=== PATIENT | female | born 1945 | race Caucasian/White ===

== ENCOUNTER → 2018-01-27 12:08 | Outpatient (CLI) | payer MEDICARE, SELFPAY ==
[2018-01-27 14:28] LABS: Thyroid Stimulating Hormone 1.31 uIU/mL (0.47-4.68)
== END ==
PROVIDERS: PCP Family Medicine; Visit Provider Internal Medicine
DX: L29.9 Pruritus, unspecified (principal)
CPT/HCPCS: 84443

== ENCOUNTER → 2018-06-07 10:39 | Outpatient (CLI) | payer MEDICARE, SELFPAY ==
--- NOTE | 2018-06-07 | DI.MG.S_ITS ---
BILATERAL DIGITAL SCREENING MAMMOGRAM 3D/2D WITH CAD: 06/07/2018 CLINICAL: Routine screening. Comparison is made to exams dated: 03/23/2017 mammogram, 11/14/2015 mammogram, and 11/23/2013 mammogram - [facility]. There are scattered fibroglandular elements in both breasts. Current study was also evaluated with a Computer Aided Detection (CAD) system. No significant masses, calcifications, or other findings are seen in either breast. There has been no significant interval change. IMPRESSION: NEGATIVE There is no mammographic evidence of malignancy. A 1 year screening mammogram is recommended. This exam was interpreted at Station ID: [id number]. NOTE: For mammograms, a report in lay terms will be sent to the patient. Approximately 15% of breast malignancies will not be visualized mammographically. In the management of a palpable breast mass, a negative mammogram must not discourage biopsy of a clinically suspicious lesion. Electronically Signed By: Maryuri burroughs/melissa:06/07/2018 11:51:34 letter sent: Normal Exam ACR BI-RADS Category 1: Negative 3341F
== END ==
PROVIDERS: PCP Family Medicine; Visit Provider Family Medicine
DX: Z12.31 Encounter for screening mammogram for malignant neoplasm of breast (principal)
CPT/HCPCS: 77063; 77067

== ENCOUNTER → 2018-11-11 15:44 | Outpatient (CLI) | payer MEDICARE, SELFPAY ==
[2018-11-11 19:03] LABS: Alanine Aminotransferase 29 IU/L (9-52); Albumin Globulin Ratio 1.4 (1.0-2.8); Alkaline Phosphatase 72 U/L (38-126); Aspartate Aminotransferase 34 IU/L (14-36); Bilirubin Total 0.5 mg/dL (0.2-1.3); Blood Urea Nitrogen 12 mg/dL (7-17); C-Reactive Protein Quant 2.3 mg/dL (<1.0); Calcium 10.1 mg/dL (8.4-10.2); Carbon Dioxide 29 mmol/L (22-32); Chloride 101 mmol/L (98-107); Cholesterol 222 mg/dL (140-199); Estimated Glomerular Filt Rate > 60.0 mL/min (>60); Globulin 3.5 g/dL (1.7-4.1); Glucose 95 mg/dL (80-110); HEMOLYSIS < 15 (0-50); Potassium 5.1 mmol/L (3.4-5.1); Sodium 139 mmol/L (137-145); Total Protein 8.5 g/dL (6.3-8.2); Triglycerides 128 mg/dL (35-150)
[2018-11-11 19:09] LABS: HDL Cholesterol 124 mg/dL (40-60); LDL Cholesterol Calculated 72 mg/dL (<100)
== END ==
PROVIDERS: PCP Family Medicine; Visit Provider Physician Assistant Medical
DX: Z00.00 Encounter for general adult medical examination without abnormal findings (principal); R79.82 Elevated C-reactive protein (CRP)
CPT/HCPCS: 36415; 80053; 80061; 86140

== ENCOUNTER → 2018-12-06 13:45 | Outpatient (CLI) | payer MEDICARE, SELFPAY ==
--- NOTE | 2018-12-06 13:47 | DI.US.S_ITS ---
PROCEDURE: US CAROTID DOPPLER BI INDICATIONS: HYPERLIPIDEMIA TECHNIQUE: Color and pulse Doppler interrogation was performed of both carotid systems, with image documentation and velocity measurements. COMPARISON: None. FINDINGS: Stenosis calculations are based on SRU (Society of Radiologists in Ultrasound) criteria. Right side: Brachial blood pressure: 127/69 mm Hg. Common carotid artery peak systolic velocity: 132 cm/sec. Internal carotid artery peak systolic velocity: 83 cm/sec. Internal carotid artery end diastolic velocity: 28 cm/sec. External carotid artery peak systolic velocity: 74 cm/sec. ICA/CCA peak systolic ratio: 0.6 . Guerra scale imaging description: Mild distal common carotid artery calcification Percent internal carotid artery stenosis: Less than 50%. Vertebral artery: Flow direction is antegrade. Left side: Brachial blood pressure: 113/67 mm Hg. Common carotid artery peak systolic velocity: 153 cm/sec. Internal carotid artery peak systolic velocity: 105 cm/sec. Internal carotid artery end diastolic velocity: 28 cm/sec. External carotid artery peak systolic velocity: 87 cm/sec. ICA/CCA peak systolic ratio: 0.7. Guerra scale imaging description: Calcified plaques at the bifurcation Percent internal carotid artery stenosis: Less than 50%. Vertebral artery: Flow direction is antegrade. IMPRESSION: 1. Less than 50% internal carotid artery stenosis bilaterally. Dictated by: Jayson Reece M.D. on 12/06/2018 at 14:30 Approved by: Jayson Reece M.D. on 12/06/2018 at 14:32
== END ==
PROVIDERS: PCP Family Medicine; Visit Provider Family Medicine
DX: Z13.820 Encounter for screening for osteoporosis (principal); M85.851 Other specified disorders of bone density and structure, right thigh; Z78.0 Asymptomatic menopausal state; I65.23 Occlusion and stenosis of bilateral carotid arteries; M54.2 Cervicalgia; E78.5 Hyperlipidemia, unspecified; M06.9 Rheumatoid arthritis, unspecified; Z87.891 Personal history of nicotine dependence
CPT/HCPCS: 77080; 93880

== ENCOUNTER 2018-12-19 08:10 | Day surgery (SDC) | payer MEDICARE, SELFPAY ==
[2018-12-19] VITALS (9 sets, daily range): BP systolic 94–143; BP diastolic 50–69; PULSE 67–78; RESP 13–16; TEMP 36.2–36.9; O2SAT 97–100; BMI 19.0
--- NOTE | 2018-12-19 | PATH_ITS ---
[facility] Accession Number: [id number] . 01 Material submitted: . PART A: ILEOCECAL VALVE - ILEOCECAL VALVE BIOPSY PART B: colon - TRANSVERSE POLYP PART C: rectum - RECTAL POLYP . 02 Diagnosis: A. Ileocecal Valve, Biopsy: Colonic mucosa with no diagnostic abnormality. Negative for active or microscopic colitis. Negative for granulomata, dysplasia or malignancy. Additional step-sections examined. . B. Transverse Colon, Polyp: Tubular adenoma. Additional step-sections examined. . C. Rectum, Polyp: Hyperplastic polyp. . I/12/21/2018 . 02 Electronically signed: . Gary Oconnor MD, PhD, Pathologist NPI- [id number] . 01 Gross description: . Part A: ILEOCECAL VALVE BIOPSY: Received in formalin is 1 fragment(s) of sosa, soft tissue measuring 0.2 x 0.1 x 0.1 cm which is entirely submitted and submitted entirely in 1 cassette(s) Part B: TRANSVERSE POLYP: Received in formalin are 2 fragment(s) of sosa, soft tissue measuring 0.1 x 0.1 x 0.1 cm to 0.2 x 0.2 x 0.2 cm which is entirely submitted and submitted entirely in 1 cassette(s) Part C: RECTAL POLYP: Received in formalin is 1 fragment(s) of sosa, soft tissue measuring 0.2 x 0.1 x 0.1 cm which is entirely submitted and submitted entirely in 1 cassette(s) /DMC /[facility] . 02 Pathologist provided ICD-10: K63.5, D12.3 . 02 CPT . 516540, 603163, 753167 Performed at: [address] [id number] MD Terell Viveros MD Phone: [phone] Performed at: 02 [facility] [id number] [place] [id number] MD Tia Brown MD Phone: [phone]
[2018-12-19] MEDS: SODIUM CHLORIDE 0.9% 1,000 ML 200 ML IV (08:55)
--- NOTE | 2018-12-19 10:47 | PM.HP.1 ---
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 No symptoms in patient. Since last scope her sister of CRC so pt is anxious. Patient History Medical History Rheumatoid arthritis (Chronic ~2007) Tubulovillous adenoma of colon (Resolved ~11/2015) Hayfever (Chronic 1994) Osteoarthritis (Chronic 2007) Osteoporosis (Chronic 2013) Polymyalgia rheumatica (Chronic 2007) Rheumatoid arthritis (Chronic 2007) Tinnitus (Chronic 1988) Chicken pox (Resolved ~1950) Colon polyps (Resolved) Fractures (Resolved 2011) Measles (Resolved ~1949) Mumps (Resolved ~1949) Rheumatic fever (Resolved ~1949) Surgical History History of bilateral tubal ligation (Acute ~1979) Anesthesia (Resolved) History of cosmetic surgery (Resolved 2011) History of oral surgery (Resolved 1992) History of oral surgery (Resolved 1999) Status post cholecystectomy (Resolved 1965) Family History (Updated 03/13/18 @ 14:17 by Rosemarie Leong DO) Child Age: 55 Diabetes mellitus Father Stroke Congestive heart failure Sister Asperger's disorder Bipolar disorder Colon cancer Drug abuse Grandfather Heart attack Grandmother No problems noted. Mother Alcoholism Grandfather No problems noted. Grandmother Gallbladder problem Social History household members: spouse Smoking Status: Former smoker (quit 1988) Family & Social History Family History Child Age: 55 Diabetes mellitus Father Stroke Congestive heart failure Sister Asperger's disorder Bipolar disorder Colon cancer Drug abuse Grandfather Heart attack Grandmother No problems noted. Mother Alcoholism Grandfather No problems noted. Grandmother Gallbladder problem Social History: household members spouse Tobacco & Substance use: Smoking Status Former smoker Meds Home Medications Medication Instructions Recorded Confirmed Type [VITAMIN B12] #0 05/27/11 07/22/18 History CA PANTOTHENATE/FOLIC ACID/VIT 1 tab PO QDAY #0 12/07/12 12/19/18 History (MULTIVITAMIN) Flaxseed Oil (#FLAXSEED OIL) 1,000 mg PO Q DAY #0 12/07/12 12/19/18 History zolpidem 5 mg tablet 5 mg PO HSP PRN #30 tab 11/15/17 07/22/18 Rx cholecalciferol (vitamin D3) 1,000 1,000 unit PO DAILY 03/07/18 12/19/18 History unit capsule hydrocodone 7.5 mg-acetaminophen 1 tab PO QID PRN #120 tab 09/23/18 12/19/18 Rx 325 mg tablet fluticasone propionate 50 1 spray INTRANASAL BID #16 gram 12/06/18 12/19/18 Rx mcg/actuation nasal spray,suspension lorazepam [Ativan] 1 mg PO QDAY PRN 12/19/18 12/19/18 History prednisone 3 mg PO DAILY 12/19/18 12/19/18 History Allergies Allergy/AdvReac Type Severity Reaction Status Date / Time sulfite Allergy Severe COUGH Verified 07/22/18 11:06 garlic Allergy Unknown cough Verified 07/22/18 11:06 tree nut Allergy Unknown ALLERGIC Verified 07/22/18 11:06 TO HAZELNUT AND PECAN codeine Allergy Verified 12/19/18 08:57 PARMESAN Allergy Severe COUGH Uncoded 07/22/18 11:06 Review of Systems Constitutional Constitutional: Reports as per HPI Exam Vital Signs (past 8 hours): - 12/19/18 08:42 Temperature 98.0 F Pulse Rate 72 Respiratory Rate 16 Blood Pressure 143/69 H Pulse Oximetry 99 Oxygen Delivery Method Room Air Narrative Exam Narrative: AAO, NAD, female of healthy weight EOMI, MMM, no scleral icterus unlabored RA soft, nt/nd MAEW visible skin dry and intact Assessment & Plan Assessment & Plan narrative: - surveillance colonoscopy in high risk patient --> all R/B/A discussed and pt wishes to proceed
[2018-12-19] MEDS: LACTATED RINGERS 1,000 ML 42 ML IV (11:37)
--- NOTE | 2018-12-19 11:39 | PM.OP.ENDO ---
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 Since then, her sister of CRC. No symptoms in patient. Surgeon: Lizzy Gibbs Procedure Notes SCOAP/Timeout: 1053 Procedure in detail: After obtaining informed consent, the patient was brought to the GI suite and placed in the left lateral decubitus position on the examination table. After placement of appropriate monitors, the patient was given incremental doses of Versed and Fentanyl until an appropriate level of sedation was achieved. A time out was held per SCOAP protocol. A digital rectal examination was performed and did not reveal any masses or obstructing lesions. The colonoscope was gently passed into the patient's anus and the entire colon navigated to the level of the cecum with difficulty due to a tortuous colon and poor patient tolerance. Abdominal pressure and increasing doses of sedation were used. Prep was adequate but with moderate volume green liquid requiring frequent suctioning. Once in the cecum, the scope was slowly withdrawn being sure to go before and beyond all mucosal folds and prominences as able to get a thorough examination. At the ileocecal valve, a protruding smooth area is noted, approximately 1cm, not distinct polyp but possibly redundant mucosa- biopsy sent. Two small 1mm polyps are noted and removed for biopsy in the transvere colon and the rectum. At the level of the rectal vault, the scope retroflexion was attempted but patient was writhing extensively so the maneuver was aborted. The scope was straightened and air aspirated from the colon. The instrument was removed from the patient's body and the procedure was concluded. The patient was allowed to awaken from sedation without difficulty and taken to the post-anesthesia care unit in good condition. Scope withdrawal time: 11 min Sedation minutes: 44 Findings: polyp (1. transverse colon polyp- 1mm 2. rectal polyp- 1mm) and other findings (ileocecal valve with smooth polyp versus redundant mucosa- biopsied ) Specimen(s): other (1. ileocecal valve biopsy 2. transverse colon polyp 3. rectal polyp) Complications: other (pt intolerant, required high doses of medication and still uncomfortable) Impression: 1. Ileocecal valve polyp versus redundant mucosa- poorly visualized; biopsied 2. Transverse colon polyp- 1mm, biopsied 3. Rectal polyp- 1mm, biopsied 4. Poor tolerance- recommend propfol sedation in future Recommendations: Colonscopy in 3 years Follow up: weeks Disposition: PACU
[2018-12-19] MEDS: MIDAZOLAM 5 MG/5 ML VIAL IV (11:41)
[2018-12-19] MEDS: fentaNYL 250 MCG/5 ML INJ IV (11:43)
--- NOTE | 2018-12-19 12:04 | SUR.PHASEI ---
Aroused to voice, denies pain/nausea. HOB elevated, juice given. VSS
--- NOTE | 2018-12-19 13:16 | SUR.PHASEII ---
pt reported new bruise on left lower forearm. pt reports she believes it is from the blood pressure cuff. after looking at bruise on left lower forearm approximately to be 1 inch by 2inch. pt reports always bruises easily. Dr. Gibbs at bedside to access bruise and no new order received.
== END 2018-12-19 13:20 | disposition home or self-care (01) ==
PROVIDERS: PCP Family Medicine; Visit Provider Surgery
PROC: 0DJD8ZZ Inspection of Lower Intestinal Tract, Via Natural or Artificial Opening Endoscopic (ICD-10-PCS; CPT 45378; principal; 2018-12-19 09:45)
DX: Z86.010 Personal history of colon polyps (principal); D12.3 Benign neoplasm of transverse colon; K62.1 Rectal polyp; Z80.0 Family history of malignant neoplasm of digestive organs
CPT/HCPCS: 45380; 88305; 99152; 99153; J2250; J3010

== ENCOUNTER → 2019-01-11 17:24 | Outpatient (CLI) | payer MEDICARE, SELFPAY ==
[2019-01-11 18:20] LABS: C-Reactive Protein Quant 2.8 mg/dL (<1.0)
== END ==
PROVIDERS: Family Provider Family Medicine; PCP Family Medicine; Visit Provider Physician Assistant Medical
DX: M35.3 Polymyalgia rheumatica (principal)
CPT/HCPCS: 36415; 86140

== ENCOUNTER → 2019-03-20 11:33 | Outpatient (CLI) | payer MEDICARE, SELFPAY ==
[2019-03-20 12:19] LABS: Add Manual Diff / Slide Review NO; Basophils Absolute Auto 100 /uL (0-100); Basophils Percent Auto 0.7 % (0-2); Eosinophils Absolute Auto 0 /uL (0-450); Eosinophils Percent Auto 0.4 % (2-4); Hematocrit 39.8 % (36-46); Hemoglobin 13.2 g/dL (12.0-16.0); Lymphocytes Absolute Auto 1400 /uL (1100-4500); Mean Corpuscular HGB Conc 33.3 % (30-36); Mean Corpuscular Hemoglobin 30.6 PG (26-34); Mean Corpuscular Volume 92.1 fL (80-100); Monocytes Absolute Auto 600 /uL (0-900); Monocytes Percent Auto 7.8 % (3-14); Neutrophils Absolute Auto 5100 /uL (1500-7000); Neutrophils Percent Auto 71.1 % (50-75); Platelet Count 262 X10^3/uL (150-400); Red Blood Cell Count 4.31 X10^6/uL (4.0-5.2); White Blood Cell Count 7.2 X10^3/uL (4.5-11.0)
[2019-03-20 12:26] LABS: Prothrombin Time 11.4 SECONDS (10.1-12.7)
[2019-03-20 12:28] LABS: PTT Partial Thromboplastin Tim 33 SECONDS (26.4-36.2)
[2019-03-20 12:43] LABS: HEMOLYSIS < 15 (0-50); Iron 90 ug/dL (37-170)
[2019-03-20 12:55] LABS: Percent Iron Saturation 28 % (15-50); Total Iron Binding Capacity 319 ug/dL (265-497); Transferrin 299 mg/dL (206-381)
[2019-03-20 13:08] LABS: Ferritin 29.2 ng/mL (11.1-264)
[2019-03-20 15:41] LABS: Vitamin D 25 Hydroxy (D3) 31.5 ng/mL (30.0-100.0)
== END ==
PROVIDERS: Family Provider Family Medicine; PCP Family Medicine; Visit Provider Family Medicine
DX: R23.8 Other skin changes (principal); M81.0 Age-related osteoporosis without current pathological fracture; D68.8 Other specified coagulation defects
CPT/HCPCS: 36415; 82306; 82728; 83540; 83550; 85025; 85610; 85730

== ENCOUNTER → 2019-05-15 15:05 | Outpatient (CLI) | payer MEDICARE, SELFPAY ==
[2019-05-15 15:40] LABS: Add Manual Diff / Slide Review NO; Basophils Absolute Auto 0 /uL (0-100); Basophils Percent Auto 0.8 % (0-2); Eosinophils Absolute Auto 100 /uL (0-450); Eosinophils Percent Auto 1.9 % (2-4); Hematocrit 36.1 % (36-46); Hemoglobin 11.9 g/dL (12.0-16.0); Lymphocytes Absolute Auto 1800 /uL (1100-4500); Lymphocytes Percent Auto 31.1 % (25-40); Mean Corpuscular HGB Conc 33.1 % (30-36); Mean Corpuscular Volume 93.9 fL (80-100); Monocytes Absolute Auto 500 /uL (0-900); Neutrophils Absolute Auto 3300 /uL (1500-7000); Neutrophils Percent Auto 57.2 % (50-75); Platelet Count 246 X10^3/uL (150-400); Red Blood Cell Count 3.85 X10^6/uL (4.0-5.2); Red Cell Distribution Width 14.8 % (11.6-14.8); White Blood Cell Count 5.7 X10^3/uL (4.5-11.0)
[2019-05-15 15:59] LABS: Erythrocyte Sedimentation Rate 25 MM/HR (0-20)
[2019-05-15 16:11] LABS: Alanine Aminotransferase 20 IU/L (<35); Albumin 4.8 g/dL (3.5-5.0); Albumin Globulin Ratio 1.5 (1.0-2.8); Alkaline Phosphatase 67 U/L (38-126); Aspartate Aminotransferase 37 IU/L (14-36); BUN Creatinine Ratio 24.3 (6-22); Bilirubin Total 0.6 mg/dL (0.2-1.3); Blood Urea Nitrogen 17 mg/dL (7-17); C-Reactive Protein Quant 1.1 mg/dL (<1.0); Calcium 9.4 mg/dL (8.4-10.2); Carbon Dioxide 29 mmol/L (22-32); Chloride 103 mmol/L (98-107); Estimated Glomerular Filt Rate > 60.0 mL/min (>60); Globulin 3.3 g/dL (1.7-4.1); Glucose 95 mg/dL (80-110); HEMOLYSIS < 15 (0-50); Potassium 4.7 mmol/L (3.4-5.1); Sodium 140 mmol/L (137-145); Total Protein 8.1 g/dL (6.3-8.2)
== END ==
PROVIDERS: PCP Family Medicine; Visit Provider Physician Assistant Medical
DX: Z79.899 Other long term (current) drug therapy (principal); M12.9 Arthropathy, unspecified
CPT/HCPCS: 36415; 80053; 85025; 85651; 86140

== ENCOUNTER → 2019-09-05 15:13 | Outpatient (CLI) | payer MEDICARE, SELFPAY ==
--- NOTE | 2019-09-05 | DI.MG.S_ITS ---
BILATERAL DIGITAL SCREENING MAMMOGRAM 3D/2D WITH CAD: 09/05/2019 CLINICAL: Routine screening. Comparison is made to exams dated: 06/07/2018 mammogram, 03/23/2017 mammogram, and 11/14/2015 mammogram - [facility]. There are scattered fibroglandular elements in both breasts. Current study was also evaluated with a Computer Aided Detection (CAD) system. No significant masses, calcifications, or other findings are seen in either breast. There has been no significant interval change. IMPRESSION: NEGATIVE There is no mammographic evidence of malignancy. A 1 year screening mammogram is recommended. This exam was interpreted at Station ID: [id number]. NOTE: For mammograms, a report in lay terms will be sent to the patient. Approximately 15% of breast malignancies will not be visualized mammographically. In the management of a palpable breast mass, a negative mammogram must not discourage biopsy of a clinically suspicious lesion. Electronically Signed By: Jose horne/melissa:09/05/2019 16:04:12 letter sent: Normal Exam ACR BI-RADS Category 1: Negative 3341F
[2019-09-05 17:16] LABS: Add Manual Diff / Slide Review NO; Basophils Absolute Auto 100 /uL (0-100); Basophils Percent Auto 0.9 % (0-2); Eosinophils Absolute Auto 200 /uL (0-450); Eosinophils Percent Auto 2.4 % (2-4); Hematocrit 35.1 % (36-46); Hemoglobin 11.8 g/dL (12.0-16.0); Lymphocytes Absolute Auto 2400 /uL (1100-4500); Lymphocytes Percent Auto 36.6 % (25-40); Mean Corpuscular HGB Conc 33.7 % (30-36); Mean Corpuscular Hemoglobin 32.1 PG (26-34); Mean Corpuscular Volume 95.4 fL (80-100); Monocytes Absolute Auto 500 /uL (0-900); Monocytes Percent Auto 7.7 % (3-14); Neutrophils Absolute Auto 3500 /uL (1500-7000); Neutrophils Percent Auto 52.4 % (50-75); Platelet Count 235 X10^3/uL (150-400); Red Blood Cell Count 3.68 X10^6/uL (4.0-5.2); Red Cell Distribution Width 12.8 % (11.6-14.8); White Blood Cell Count 6.6 X10^3/uL (4.5-11.0)
[2019-09-05 17:45] LABS: Erythrocyte Sedimentation Rate 22 MM/HR (0-20)
[2019-09-05 18:06] LABS: Alanine Aminotransferase 20 IU/L (<35); Albumin 4.7 g/dL (3.5-5.0); Albumin Globulin Ratio 1.3 (1.0-2.8); Alkaline Phosphatase 61 U/L (38-126); Aspartate Aminotransferase 36 IU/L (14-36); BUN Creatinine Ratio 28.1 (6-22); Bilirubin Total 0.4 mg/dL (0.2-1.3); Blood Urea Nitrogen 18 mg/dL (7-17); C-Reactive Protein Quant < 0.5 mg/dL (<1.0); Calcium 9.6 mg/dL (8.4-10.2); Carbon Dioxide 29 mmol/L (22-32); Chloride 103 mmol/L (98-107); Estimated Glomerular Filt Rate > 60.0 mL/min (>60); Globulin 3.7 g/dL (1.7-4.1); Glucose 82 mg/dL (80-110); HEMOLYSIS < 15 (0-50); Potassium 4.7 mmol/L (3.4-5.1); Sodium 139 mmol/L (137-145); Total Protein 8.4 g/dL (6.3-8.2)
== END ==
PROVIDERS: Physician Assistant Medical; PCP Family Medicine; Referring Provider Family Medicine; Visit Provider Family Medicine
DX: Z12.31 Encounter for screening mammogram for malignant neoplasm of breast (principal); M35.3 Polymyalgia rheumatica
CPT/HCPCS: 36415; 77063; 77067; 80053; 85025; 85651; 86140

== ENCOUNTER → 2020-01-18 10:44 | Outpatient (CLI) | payer MEDICARE, SELFPAY ==
[2020-01-18 11:47] LABS: Add Manual Diff / Slide Review NO; Basophils Absolute Auto 0 /uL (0-100); Eosinophils Absolute Auto 100 /uL (0-450); Eosinophils Percent Auto 2.5 % (2-4); Hemoglobin 12.1 g/dL (12.0-16.0); Lymphocytes Absolute Auto 1500 /uL (1100-4500); Lymphocytes Percent Auto 34.9 % (25-40); Mean Corpuscular HGB Conc 32.7 % (30-36); Mean Corpuscular Hemoglobin 30.5 PG (26-34); Mean Corpuscular Volume 93.3 fL (80-100); Monocytes Absolute Auto 400 /uL (0-900); Monocytes Percent Auto 9.6 % (3-14); Neutrophils Absolute Auto 2300 /uL (1500-7000); Platelet Count 223 X10^3/uL (150-400); Red Blood Cell Count 3.96 X10^6/uL (4.0-5.2); Red Cell Distribution Width 13.4 % (11.6-14.8); White Blood Cell Count 4.4 X10^3/uL (4.5-11.0)
[2020-01-18 11:48] LABS: UR Morphine/Opiate cutoff 300 Positive (Negative); Ur Creatinine Normal (Normal); Ur Specific Gravity Normal (Normal); Urine Amphetamines Negative (Negative); Urine Barbiturates Negative (Negative); Urine Benzodiazepines Negative (Negative); Urine Cocaine Negative (Negative); Urine MDMA Negative (Negative); Urine Methadone Negative (Negative); Urine Methamphetamines Negative (Negative); Urine Oxycodone Negative (Negative); Urine Phencyclidine Negative (Negative); Urine Tetrahydrocannabinol Negative (Negative); Urine Tricyclic Antidepressant Negative (Negative); Urine pH Normal (Normal)
[2020-01-18 12:18] LABS: Erythrocyte Sedimentation Rate 15 MM/HR (0-20)
[2020-01-18 12:28] LABS: Alanine Aminotransferase 19 IU/L (<35); Albumin 4.5 g/dL (3.5-5.0); Albumin Globulin Ratio 1.3 (1.0-2.8); Alkaline Phosphatase 54 U/L (38-126); Aspartate Aminotransferase 31 IU/L (14-36); BUN Creatinine Ratio 30.8 (6-22); Bilirubin Total 0.5 mg/dL (0.2-1.3); Blood Urea Nitrogen 20 mg/dL (7-17); C-Reactive Protein Quant 0.7 mg/dL (<1.0); Calcium 9.6 mg/dL (8.4-10.2); Carbon Dioxide 29 mmol/L (22-32); Chloride 104 mmol/L (98-107); Estimated Glomerular Filt Rate > 60.0 mL/min (>60); Globulin 3.5 g/dL (1.7-4.1); Glucose 112 mg/dL (80-110); HEMOLYSIS < 15 (0-50); Potassium 4.4 mmol/L (3.4-5.1); Sodium 139 mmol/L (137-145)
[2020-01-18 12:53] LABS: TSH w/ Reflex to FT4 0.95 uIU/mL (0.47-4.68)
== END ==
PROVIDERS: PCP Family Medicine; Referring Provider Physician Assistant Medical; Visit Provider Physician Assistant Medical
DX: Z79.899 Other long term (current) drug therapy (principal); L65.9 Nonscarring hair loss, unspecified; F11.90 Opioid use, unspecified, uncomplicated
CPT/HCPCS: 36415; 80053; 80305; 84443; 85025; 85651; 86140

== ENCOUNTER → 2020-05-17 12:54 | Outpatient (CLI) | payer MEDICARE, SELFPAY ==
[2020-05-17 13:26] LABS: Add Manual Diff / Slide Review NO; Basophils Absolute Auto 0 /uL (0-100); Basophils Percent Auto 0.7 % (0-2); Eosinophils Absolute Auto 100 /uL (0-450); Eosinophils Percent Auto 1.5 % (2-4); Hematocrit 37.1 % (36-46); Hemoglobin 12.2 g/dL (12.0-16.0); Lymphocytes Absolute Auto 1700 /uL (1100-4500); Lymphocytes Percent Auto 25.9 % (25-40); Mean Corpuscular Hemoglobin 31.1 PG (26-34); Mean Corpuscular Volume 94.1 fL (80-100); Monocytes Absolute Auto 500 /uL (0-900); Monocytes Percent Auto 8.2 % (3-14); Neutrophils Absolute Auto 4100 /uL (1500-7000); Neutrophils Percent Auto 63.7 % (50-75); Platelet Count 225 X10^3/uL (150-400); Red Blood Cell Count 3.94 X10^6/uL (4.0-5.2); Red Cell Distribution Width 13.8 % (11.6-14.8); White Blood Cell Count 6.4 X10^3/uL (4.5-11.0)
[2020-05-17 13:43] LABS: Alanine Aminotransferase 19 IU/L (<35); Albumin 4.6 g/dL (3.5-5.0); Albumin Globulin Ratio 1.2 (1.0-2.8); Alkaline Phosphatase 71 U/L (38-126); Aspartate Aminotransferase 35 IU/L (14-36); BUN Creatinine Ratio 21.3 (6-22); Bilirubin Total 0.8 mg/dL (0.2-1.3); Blood Urea Nitrogen 13 mg/dL (7-17); C-Reactive Protein Quant 0.7 mg/dL (<1.0); Calcium 9.3 mg/dL (8.4-10.2); Carbon Dioxide 32 mmol/L (22-32); Chloride 102 mmol/L (98-107); Estimated Glomerular Filt Rate > 60.0 mL/min (>60); Glucose 89 mg/dL (80-110); HEMOLYSIS < 15 (0-50); Potassium 4.4 mmol/L (3.4-5.1); Sodium 137 mmol/L (137-145); Total Protein 8.6 g/dL (6.3-8.2)
[2020-05-17 13:47] LABS: Erythrocyte Sedimentation Rate 20 MM/HR (0-20)
== END ==
PROVIDERS: PCP Family Medicine; Referring Provider Physician Assistant Medical; Visit Provider Physician Assistant Medical
DX: M35.3 Polymyalgia rheumatica (principal)
CPT/HCPCS: 36415; 80053; 85025; 85651; 86140

== ENCOUNTER → 2020-06-19 14:38 | Outpatient (CLI) | payer MEDICARE, SELFPAY ==
--- NOTE | 2020-06-19 14:39 | DI.US.S_ITS ---
PROCEDURE: US CAROTID DOPPLER BI INDICATIONS: history of stenosis TECHNIQUE: Color and pulse Doppler interrogation was performed of both carotid systems, with image documentation and velocity measurements. COMPARISON: [facility], [place], US CAROTID DOPPLER BI, 12/06/2018, 13:51. FINDINGS: Stenosis calculations are based on SRU (Society of Radiologists in Ultrasound) criteria. Right side: Brachial blood pressure: Not obtained Common carotid artery peak systolic velocity: 110 cm/sec. Internal carotid artery peak systolic velocity: 109 cm/sec. Internal carotid artery end diastolic velocity: 43 cm/sec. External carotid artery peak systolic velocity: 60 cm/sec. ICA/CCA peak systolic ratio: 1.0 . Guerra scale imaging description: Mild plaque at the bifurcation Percent internal carotid artery stenosis: Less than 50% . Vertebral artery: Flow direction is antegrade. Left side: Brachial blood pressure: Not obtained Common carotid artery peak systolic velocity: 116 cm/sec. Internal carotid artery peak systolic velocity: 141 cm/sec is seen in the distal ICA however no visible plaque is seen in this region Internal carotid artery end diastolic velocity: 55 cm/sec. External carotid artery peak systolic velocity: 63 cm/sec. ICA/CCA peak systolic ratio: 1.2 . Guerra scale imaging description: Minimal plaque Percent internal carotid artery stenosis: Possible 50-69% . See comment below. Vertebral artery: Flow direction is antegrade. IMPRESSION: Less than 50% right ICA stenosis Increased left distal ICA peak systolic velocity (which would correspond to 50-69% left ICA stenosis. ) However, no significant plaque is seen in this region during real-time observation, therefore technically indeterminate. Further assessment with dedicated CTA could be performed as clinically warranted, versus ultrasound follow-up. Dictated by: Rod Phoenix M.D. on 06/19/2020 at 15:34 Approved by: Rod Phoenix M.D. on 06/19/2020 at 16:05
== END ==
PROVIDERS: PCP Family Medicine; Referring Provider Family Medicine; Visit Provider Family Medicine
DX: I65.21 Occlusion and stenosis of right carotid artery (principal); Z86.79 Personal history of other diseases of the circulatory system
CPT/HCPCS: 93880

== ENCOUNTER → 2020-09-04 13:31 | Outpatient (CLI) | payer MEDICARE, SELFPAY ==
--- NOTE | 2020-09-25 08:40 | P.HOLT.S_ITS ---
[employer] Report Referral & Results Date Patient Seen: 09/04/20 Requesting provider: Rosemarie Leong Indication: Arrhythmia Duration of monitoring (days): 7 Diary information: There were 10 patient triggered events and 9 patient diary entries All of these patient events were associated with sinus rhythm alone Data: Minimum heart rate identified was 56 beats per minute at 02:54 on 09/07/2020 Maximum sinus heart rate was 138 beats per minute at 15:18 on 09/05/2020 Maximum overall heart rate was 187 beats per minute at 12:44 on 09/09/2020 during a 4 beat run of SVT Less than 1% of identified beats or either ventricular or supraventricular ectopic in origin which were classify them as rare There were 15 runs of SVT the fastest being the 4 beat run noted above and the longest being 15 beats at a rate of 147 beats per minute Impression: Patient with rare PVCs PACs and very brief runs SVT
== END ==
PROVIDERS: PCP Family Medicine; Referring Provider Family Medicine; Visit Provider Family Medicine
DX: I49.9 Cardiac arrhythmia, unspecified (principal)
CPT/HCPCS: 93242; 93244

== ENCOUNTER → 2020-09-06 10:43 | Outpatient (CLI) | payer MEDICARE, SELFPAY ==
[2020-09-06 11:13] LABS: Add Manual Diff / Slide Review NO; Basophils Absolute Auto 100 /uL (0-100); Basophils Percent Auto 1.2 % (0-2); Eosinophils Absolute Auto 100 /uL (0-450); Eosinophils Percent Auto 2.2 % (2-4); Hematocrit 36.9 % (36-46); Hemoglobin 12.1 g/dL (12.0-16.0); Lymphocytes Absolute Auto 1700 /uL (1100-4500); Lymphocytes Percent Auto 38.9 % (25-40); Mean Corpuscular HGB Conc 32.8 % (30-36); Mean Corpuscular Hemoglobin 30.9 PG (26-34); Mean Corpuscular Volume 94.1 fL (80-100); Monocytes Absolute Auto 500 /uL (0-900); Monocytes Percent Auto 10.8 % (3-14); Neutrophils Absolute Auto 2100 /uL (1500-7000); Neutrophils Percent Auto 46.9 % (50-75); Platelet Count 223 X10^3/uL (150-400); Red Blood Cell Count 3.92 X10^6/uL (4.0-5.2); Red Cell Distribution Width 13.8 % (11.6-14.8); White Blood Cell Count 4.4 X10^3/uL (4.5-11.0)
[2020-09-06 11:25] LABS: Alanine Aminotransferase 23 IU/L (<35); Albumin 4.6 g/dL (3.5-5.0); Albumin Globulin Ratio 1.2 (1.0-2.8); Alkaline Phosphatase 65 U/L (38-126); Aspartate Aminotransferase 40 IU/L (14-36); BUN Creatinine Ratio 26.6 (6-22); Bilirubin Total 0.6 mg/dL (0.2-1.3); Blood Urea Nitrogen 17 mg/dL (7-17); C-Reactive Protein Quant 0.6 mg/dL (<1.0); Calcium 9.4 mg/dL (8.4-10.2); Carbon Dioxide 33 mmol/L (22-32); Chloride 102 mmol/L (98-107); Estimated Glomerular Filt Rate > 60.0 mL/min (>60); Globulin 3.7 g/dL (1.7-4.1); Glucose 94 mg/dL (80-110); HEMOLYSIS < 15 (0-50); Potassium 4.4 mmol/L (3.4-5.1); Sodium 137 mmol/L (137-145); Total Protein 8.3 g/dL (6.3-8.2)
[2020-09-06 11:36] LABS: Erythrocyte Sedimentation Rate 20 MM/HR (0-20)
[2020-09-06 11:53] LABS: Cholesterol 206 mg/dL (140-199); Triglycerides 56 mg/dL (35-150)
[2020-09-06 12:03] LABS: HDL Cholesterol 113 mg/dL (40-60); LDL Cholesterol Calculated 82 mg/dL (<100)
== END ==
PROVIDERS: PCP Family Medicine; Referring Provider Physician Assistant Medical; Visit Provider Family Medicine
DX: M35.5 Multifocal fibrosclerosis (principal); I70.90 Unspecified atherosclerosis; Z86.79 Personal history of other diseases of the circulatory system
CPT/HCPCS: 36415; 80053; 80061; 85025; 85651; 86140

== ENCOUNTER → 2020-09-19 16:55 | Outpatient (CLI) | payer MEDICARE, SELFPAY ==
--- NOTE | 2020-09-19 | DI.MG.S_ITS ---
BILATERAL DIGITAL SCREENING MAMMOGRAM 3D/2D WITH CAD: 09/19/2020 CLINICAL: Routine screening. Comparison is made to exams dated: 09/05/2019 mammogram, 06/07/2018 mammogram, and 03/23/2017 mammogram - [facility]. There are scattered fibroglandular elements in both breasts. Current study was also evaluated with a Computer Aided Detection (CAD) system. No significant masses, calcifications, or other findings are seen in either breast. There has been no significant interval change. IMPRESSION: NEGATIVE There is no mammographic evidence of malignancy. A 1 year screening mammogram is recommended. This exam was interpreted at Station ID: [id number]. NOTE: For mammograms, a report in lay terms will be sent to the patient. Approximately 15% of breast malignancies will not be visualized mammographically. In the management of a palpable breast mass, a negative mammogram must not discourage biopsy of a clinically suspicious lesion. Electronically Signed By: Wing Her acr/melissa:09/19/2020 17:28:06 letter sent: Normal Exam ACR BI-RADS Category 1: Negative 3341F
== END ==
PROVIDERS: PCP Family Medicine; Referring Provider Family Medicine; Visit Provider Family Medicine
DX: Z12.31 Encounter for screening mammogram for malignant neoplasm of breast (principal)
CPT/HCPCS: 77063; 77067

== ENCOUNTER → 2020-10-01 12:38 | Outpatient (CLI) | payer MEDICARE, SELFPAY ==
--- NOTE | 2020-10-01 12:42 | DI.RAD.S_ITS ---
PROCEDURE: XR CHEST 2V INDICATIONS: cough and SOB TECHNIQUE: 2 views of the chest were acquired. COMPARISON: [facility], CR, SHOULDER MIN 2VW (LT), 05/06/2011, 10:37. FINDINGS: Surgical changes and devices: None. Lungs and pleura: Lungs are clear. No pleural effusions or pneumothorax. Mediastinum: Mediastinal contours are normal. Heart size is normal. Bones and chest wall: No suspicious bony abnormalities. Soft tissues appear unremarkable. IMPRESSION: No source for cough and shortness of breath identified radiographically. Dictated by: Mervin Oquendo [facility] Interpreted: Rod Phoenix MD on 10/01/2020 at 13:18 Approved by: Rod Phoenix M.D. on 10/01/2020 at 14:24
== END ==
PROVIDERS: PCP Family Medicine; Referring Provider Family Medicine; Visit Provider Family Medicine
DX: R05 Cough (principal); R06.02 Shortness of breath
CPT/HCPCS: 71046

== ENCOUNTER → 2020-10-24 14:42 | Outpatient (CLI) | payer MEDICARE, SELFPAY ==
--- NOTE | 2020-10-24 14:47 | DI.ECHO.S_ITS ---
[facility] +---------+ : : [address] [place] : : : : [id number] : : : : Phone: [phone]+ Echocardiogram Report + + :Name: AIDA PASCAL Study Date: 10/24/2020 Height: 67 in : :[facility] ReadingLocation: Weight: 122 lb : : Gender: Female BSA: 1.6 m2 : :: 1945 Age: 75 yrs BP: 155/73 mmHg: :Reason For Study: SOB : :Ordering Physician: MELIZA, : :SHERRY Performed By: Sriram Salgado : :Referring: SHERRY HAIDER : + + Interpretation Summary The ejection fraction is estimated to be 65-70%. There is no significant valvular heart disease. Procedure: A two-dimensional transthoracic echocardiogram with color flow and Doppler was performed. The study quality was technically adequate. There is no prior echocardiogram noted for this patient. The patient was in sinus rhythm with heart rates between 68-73 bpm during the exam. Left Ventricle: The left ventricle is normal in size and wall thickness. Left ventricular systolic function is normal. The ejection fraction is estimated to be 65-70%. There are no focal wall motion abnormalities. Diastolic function could not be accurately assessed due to unobtainable data. Right Ventricle: The right ventricle is normal in size and function. Atria: Both atria are normal in size. There is no Doppler evidence for an interatrial shunt. Mitral Valve: There is mild mitral annular calcification. There is trace mitral regurgitation. Aortic Valve: The aortic valve is normal in structure and function. No aortic regurgitation is present. Tricuspid Valve: The tricuspid valve is normal in structure and function. There is a trace or physiologic amount of tricuspid regurgitation. Pulmonary artery pressures cannot be estimated because of the lack of a measurable TR jet velocity but the IVC suggests a CVP of around 3 mmHg. Pulmonic Valve: The pulmonic valve is not well visualized. There is no pulmonic valvular regurgitation. Great Vessels: The aortic root is normal size. The dimensions of the ascending aorta are normal. The IVC is of normal diameter and collapses greater than 50% with a sniff. This suggests a low right atrial pressure of 3 mm Hg. Pericardium/ Pleura There is no pericardial effusion. There is no pleural effusion. MMode/2D Measurements & Calculations LVIDd: 4.0 cm LVOT diam: 2.0 cm LVIDs: 2.5 cm Ao root diam: 3.0 cm FS: 36.8 % asc Aorta Diam: 2.6 cm IVSd: 0.94 cm LVPWd: 0.84 cm LV wise. diameter/BSA (cm/m^2): 2.4 LV sys. diameter/BSA (cm/m^2): 1.5 LA A2 area: 12.3 cm2 RA area: 12.7 cm2 LA A4 area: 14.0 cm2 IVC diam: 1.8 cm LA length (vol): 4.0 cm LA vol: 36.4 ml LA vol index: 22.2 ml/m2 RVD1 (basal): 2.9 cm TAPSE: 2.5 cm Doppler Measurements & Calculations Ao V2 max: 129.3 cm/sec LVOT Max Raman: 112.1 cm/sec Ao V2 mean: 86.8 cm/sec LV V1 max P.0 mmHg Ao max P.7 mmHg LV V1 VTI: 26.6 cm Ao mean P.4 mmHg CARLIN(I,D): 3.1 cm2 Ao V2 VTI: 27.2 cm CARLIN(V,D): 2.8 cm2 sev ratio: 0.98 CARLIN indexed to BSA (cm^2/m^2): 1.9 MV E max raman: 105.8 cm/sec PA V2 max: 95.1 cm/sec MV A max raman: 94.5 cm/sec PA V2 mean: 78.3 cm/sec MV E/A: 1.1 PA mean P.6 mmHg Med Peak E' Raman: 7.9 cm/sec PA pr(Accel): 33.3 mmHg E/E' med: 13.4 Lat Peak E' Raman: 9.3 cm/sec E/E' lat: 11.4 E/e' average: 12.4 MV dec time: 0.20 sec SV(LVOT): 84.3 ml Reading Physician:04:42 PM
== END ==
PROVIDERS: PCP Family Medicine; Referring Provider Family Medicine; Visit Provider Family Medicine
DX: R06.02 Shortness of breath (principal); Z86.79 Personal history of other diseases of the circulatory system
CPT/HCPCS: C8929; Q9957

== ENCOUNTER → 2021-09-22 15:35 | Outpatient (CLI) | payer MEDICARE, SELFPAY ==
--- NOTE | 2021-09-22 15:39 | DI.MG.S_ITS ---
BILATERAL DIGITAL SCREENING MAMMOGRAM 3D/2D WITH CAD: 09/22/2021 CLINICAL: Routine screening. Comparison is made to exams dated: 09/19/2020 mammogram, 09/05/2019 mammogram, and 06/07/2018 mammogram - [facility]. There are scattered fibroglandular elements in both breasts. Current study was also evaluated with a Computer Aided Detection (CAD) system. No significant masses, calcifications, or other findings are seen in either breast. There has been no significant interval change. IMPRESSION: NEGATIVE There is no mammographic evidence of malignancy. A 1 year screening mammogram is recommended. This exam was interpreted at Station ID: [id number]. NOTE: For mammograms, a report in lay terms will be sent to the patient. Approximately 15% of breast malignancies will not be visualized mammographically. In the management of a palpable breast mass, a negative mammogram must not discourage biopsy of a clinically suspicious lesion. Electronically Signed By: Malcom Armijo M.D., jr/melissa:09/22/2021 16:23:29 letter sent: Normal Exam ACR BI-RADS Category 1: Negative 3341F
== END ==
PROVIDERS: PCP Family Medicine; Referring Provider Family Medicine; Visit Provider Family Medicine
DX: Z12.31 Encounter for screening mammogram for malignant neoplasm of breast (principal)
CPT/HCPCS: 77063; 77067

== ENCOUNTER → 2022-11-06 08:33 | Outpatient (CLI) | payer MEDICARE, SELFPAY ==
[2022-11-06 10:14] LABS: Add Manual Diff / Slide Review NO; Basophils Absolute Auto 0 /uL (0-100); Basophils Percent Auto 0.8 % (0-2); Eosinophils Absolute Auto 100 /uL (0-450); Eosinophils Percent Auto 2.5 % (2-4); Hematocrit 33.8 % (36-46); Hemoglobin 11.6 g/dL (12.0-16.0); Lymphocytes Absolute Auto 1500 /uL (1100-4500); Lymphocytes Percent Auto 39.9 % (25-40); Mean Corpuscular HGB Conc 34.3 % (30-36); Mean Corpuscular Hemoglobin 32.3 PG (26-34); Mean Corpuscular Volume 94.1 fL (80-100); Monocytes Absolute Auto 500 /uL (0-900); Neutrophils Absolute Auto 1700 /uL (1500-7000); Neutrophils Percent Auto 44.8 % (50-75); Platelet Count 214 X10^3/uL (150-400); Red Blood Cell Count 3.59 X10^6/uL (4.0-5.2); Red Cell Distribution Width 13.4 % (11.6-14.8); White Blood Cell Count 3.8 X10^3/uL (4.5-11.0)
[2022-11-06 10:48] LABS: Alanine Aminotransferase 15 IU/L (<35); Albumin 4.2 g/dL (3.5-5.0); Alkaline Phosphatase 70 U/L (38-126); Aspartate Aminotransferase 31 IU/L (14-36); BUN Creatinine Ratio 19.1 (6-22); Bilirubin Total 0.5 mg/dL (0.2-1.3); Blood Urea Nitrogen 13 mg/dL (7-17); Calcium 8.9 mg/dL (8.4-10.2); Carbon Dioxide 32 mmol/L (22-32); Chloride 101 mmol/L (98-107); Cholesterol 218 mg/dL (140-199); Estimated Glomerular Filt Rate > 60 mL/min (>60); Globulin 4.3 g/dL (1.7-4.1); Glucose 83 mg/dL (80-110); HDL Cholesterol 106 mg/dL (40-60); HEMOLYSIS < 15 (0-50); LDL Cholesterol Calculated 98 mg/dL (<100); Potassium 3.9 mmol/L (3.4-5.1); Sodium 139 mmol/L (137-145); Total Protein 8.5 g/dL (6.3-8.2); Triglycerides 72 mg/dL (35-150)
[2022-11-06 10:52] LABS: High Sensitivity CRP - Cardiac 6.8 mg/L (1.0-3.0)
[2022-11-06 11:24] LABS: TSH w/ Reflex to FT4 1.12 uIU/mL (0.47-4.68)
[2022-11-10 17:53] LABS: Alpha-1-Globulin 0.3 g/dL (0.0-0.4); Alpha-2-Globulin 0.7 g/dL (0.4-1.0); Gamma Globulin 2.1 g/dL (0.4-1.8); Globulin Total 3.9 g/dL (2.2-3.9); Protein, Total 7.9 g/dL (6.0-8.5)
== END ==
PROVIDERS: PCP Family Medicine; Referring Provider Family Medicine; Visit Provider Family Medicine
DX: M35.3 Polymyalgia rheumatica (principal); R00.2 Palpitations; Z13.220 Encounter for screening for lipoid disorders; Z13.29 Encounter for screening for other suspected endocrine disorder
CPT/HCPCS: 36415; 80053; 80061; 84155; 84165; 84443; 85025; 86140

== ENCOUNTER → 2022-11-13 16:06 | Outpatient (CLI) | payer MEDICARE, SELFPAY ==
[2022-11-17 22:22] LABS: Albumin 3.9 g/dL (2.9-4.4); Alpha-1-Globulin 0.2 g/dL (0.0-0.4); Alpha-2-Globulin 0.6 g/dL (0.4-1.0); Gamma Globulin 2.1 g/dL (0.4-1.8); Globulin Total 3.8 g/dL (2.2-3.9); Protein, Total 7.7 g/dL (6.0-8.5)
== END ==
PROVIDERS: PCP Family Medicine; Referring Provider Physician Assistant Medical; Visit Provider Physician Assistant Medical
DX: R77.8 Other specified abnormalities of plasma proteins (principal)
CPT/HCPCS: 36415; 84155; 84165

== ENCOUNTER → 2022-12-03 10:46 | Outpatient (CLI) | payer MEDICARE, SELFPAY ==
--- NOTE | 2022-12-03 | DI.MG.S_ITS ---
BILATERAL DIGITAL SCREENING MAMMOGRAM 3D/2D WITH CAD: 12/03/2022 CLINICAL: Routine screening. Comparison is made to exams dated: 09/22/2021 mammogram, 09/19/2020 mammogram, and 09/05/2019 mammogram - [facility]. There are scattered areas of fibroglandular density in both breasts (category b / 25%-50% glandular tissue). Current study was also evaluated with a Computer Aided Detection (CAD) system. No significant masses, calcifications, or other findings are seen in either breast. There has been no significant interval change. IMPRESSION: NEGATIVE There is no mammographic evidence of malignancy. A 1 year screening mammogram is recommended. Based on the Tyrer Cuzick model (a risk assessment model) the patient's lifetime risk is 2.0% and her 10 year risk is 0.0%. According to the ACR, ACS, and NCCN guidelines, an annual breast MRI exam along with mammogram is recommended if the patient's lifetime risk is 20% or greater. This exam was interpreted at Station ID: [id number]. NOTE: For mammograms, a report in lay terms will be sent to the patient. Approximately 15% of breast malignancies will not be visualized mammographically. In the management of a palpable breast mass, a negative mammogram must not discourage biopsy of a clinically suspicious lesion. Electronically Signed By: Hayden alston/melissa:12/03/2022 11:43:13 letter sent: Normal Exam ACR BI-RADS Category 1: Negative 3341F
== END ==
PROVIDERS: PCP Family Medicine; Referring Provider Family Medicine; Visit Provider Family Medicine
DX: Z12.31 Encounter for screening mammogram for malignant neoplasm of breast (principal)
CPT/HCPCS: 77063; 77067

== ENCOUNTER 2022-12-19 20:26 | Emergency (ER) | payer MEDICARE, SELFPAY ==
[2022-12-19 20:36] VITALS: BP 133/60; PULSE 108; RESP 18; TEMP 36.9; O2SAT 97; BMI 18.8
[2022-12-19 21:01] LABS: Culture Indicated Urine Specimen Cultured; Hyaline Casts Urine 5-10/LPF; RBC Urine 0-1/HPF (0-5/HPF); Renal Epithelial Cells Urine 0-1/HPF (0-1/HPF); Squamous Epithelial Cell Urine 1-5 /HPF (0-5/HPF); Transitional Epi Cells Urine 1-5/HPF (0-5/HPF); WBC Urine 5-10/HPF (0-5/HPF)
[2022-12-19 21:02] LABS: Bacteria Urine Occasional (0-1)
--- NOTE | 2022-12-19 21:13 | DI.CT.S_ITS ---
PROCEDURE: CT ABDOMEN PELVIS W CON INDICATIONS: Right lower quadrant pain TECHNIQUE: After the administration of intravenous contrast, axial sections acquired from the lung bases to the pubic symphysis. Coronal and sagittal reformats were performed. For radiation dose reduction, the following was used: automated exposure control, adjustment of mA and/or kV according to patient size. COMPARISON: None. FINDINGS: Lower thorax: The lung bases are clear. Heart size normal. No hiatal hernia. Liver: Intrahepatic biliary ductal dilatation present. There is a left hepatic cyst measuring 1.6 cm. Biliary system: Cholecystectomy. Distal CBD 1.1 cm proximal CBD 1.4 cm Pancreas: Unremarkable without mass or inflammation evident. Spleen: Normal in size and density. Adrenals: Normal morphology and density. Reproductive system: Unremarkable as visualized. Urinary system: Normal renal size and attenuation. Small subcentimeter bilateral renal hypodensities, likely cysts. No renal calculi, hydronephrosis, or solid mass present. Urinary bladder unremarkable. Gastrointestinal system: There is right colon wall thickening without pericolonic inflammatory change. No evidence of obstruction. No pneumatosis. Appendix: Although the appendix is not visualized, no pericecal inflammation present to suggest appendicitis Peritoneal spaces: No mesenteric or retroperitoneal adenopathy. No free air. No free fluid. Vasculature: Aortic atherosclerotic vascular calcification noted without evidence of aneurysm. Abdominal wall: Abdominal wall intact without evidence of ventral or inguinal hernias. Musculoskeletal: Normal bone mineralization. No acute fractures. Left hip arthroplasty limits assessment of several images in the pelvis. Chronic appearing T11 wedge-shaped compression fracture with 10% height loss IMPRESSION: 1. Although the appendix is not visualized, no pericecal inflammation present to suggest appendicitis. 2. Mild right colon wall thickening without pericolonic inflammatory change. Differential would include mild early colitis versus underdistention of the colon. 3. Intra and extrahepatic bile duct dilatation status post cholecystectomy. Consider follow-up MRCP to evaluate for distal CBD stone. Approved by: Parish Armstrong M.D. on 12/19/2022 at 22:25
[2022-12-19 21:23] LABS: Add Manual Diff / Slide Review NO; Basophils Absolute Auto 0 /uL (0-100); Basophils Percent Auto 0.2 % (0-2); Eosinophils Absolute Auto 0 /uL (0-450); Hematocrit 31.2 % (36-46); Hemoglobin 10.7 g/dL (12.0-16.0); Lymphocytes Absolute Auto 600 /uL (1100-4500); Lymphocytes Percent Auto 5.1 % (25-40); Mean Corpuscular HGB Conc 34.5 % (30-36); Mean Corpuscular Hemoglobin 31.9 PG (26-34); Mean Corpuscular Volume 92.6 fL (80-100); Monocytes Absolute Auto 500 /uL (0-900); Monocytes Percent Auto 4.7 % (3-14); Neutrophils Absolute Auto 9800 /uL (1500-7000); Platelet Count 204 X10^3/uL (150-400); Red Blood Cell Count 3.37 X10^6/uL (4.0-5.2); Red Cell Distribution Width 13.3 % (11.6-14.8); White Blood Cell Count 10.9 X10^3/uL (4.5-11.0)
[2022-12-19] MEDS: MORPHINE 2 MG/ML INJ IV (21:30)
[2022-12-19 21:36] VITALS: BP 133/62; PULSE 87; RESP 20; O2SAT 97
[2022-12-19 21:37] LABS: Alanine Aminotransferase 17 IU/L (<35); Albumin 4.1 g/dL (3.5-5.0); Albumin Globulin Ratio 0.9 (1.0-2.8); Alkaline Phosphatase 58 U/L (38-126); Aspartate Aminotransferase 28 IU/L (14-36); BUN Creatinine Ratio 21.4 (6-22); Bilirubin Total 0.7 mg/dL (0.2-1.3); Blood Urea Nitrogen 15 mg/dL (7-17); Calcium 8.8 mg/dL (8.4-10.2); Carbon Dioxide 28 mmol/L (22-32); Chloride 99 mmol/L (98-107); Estimated Glomerular Filt Rate > 60 mL/min (>60); Globulin 4.5 g/dL (1.7-4.1); Glucose 143 mg/dL (80-110); HEMOLYSIS < 15 (0-50); Lipase 39 U/L (23-300); Potassium 3.9 mmol/L (3.4-5.1); Sodium 135 mmol/L (137-145); Total Protein 8.6 g/dL (6.3-8.2)
[2022-12-19 22:35] VITALS: BP 165/72; PULSE 100; O2SAT 96
[2022-12-19 23:29] VITALS: BP 165/72; PULSE 104; RESP 16; O2SAT 97
[2022-12-19 23:38] VITALS: BP 142/65; PULSE 101; RESP 20; O2SAT 98
--- NOTE | 2022-12-20 00:05 | ED.ABDPAIN ---
HPI - Abdominal Pain General Chief Complaint: Abdominal Pain Stated Complaint: SEVERE ABD PAIN Time Seen by Provider: 12/19/22 21:13 Source: patient Mode of arrival: Ambulatory History of Present Illness HPI narrative: Patient is 77-year-old female history of polymyalgia rheumatica presenting today with sudden onset of right lower quadrant pain. She reports that she was well last night and yesterday and this morning around 10:00 a.m. had sudden pain. She is previously had appendicitis attacks but has never had her appendix removed. She denies any painful frequent urination no nausea or vomiting no flank pain. No other symptoms. Related Data Home Medications Medication Instructions Recorded Confirmed cholecalciferol (vitamin D3) 25 1,000 unit PO DAILY 03/07/18 03/24/22 mcg (1,000 unit) capsule prednisone 1 mg tablet 1 mg PO DAILY 03/20/19 03/24/22 flaxseed oil 1,000 mg capsule 1,000 mg PO DAILY 03/24/22 03/24/22 mecobalamin (vitamin B12) PO 03/24/22 03/24/22 multivitamin 1 tab PO DAILY 03/24/22 03/24/22 Previous Rx's Medication Instructions Recorded fluticasone propionate 50 1 spray intranasal BID #16 grams 07/17/22 mcg/actuation nasal spray,suspension hydrocodone 7.5 mg-acetaminophen 1 tab PO BID PRN breakthrough 09/21/22 325 mg tablet pain, severe #120 tabs ciprofloxacin HCl 500 mg tablet 500 mg PO BID #14 tabs 12/20/22 (Cipro) hydrocodone 5 mg-acetaminophen 325 1 tab PO Q6H PRN pain #10 tabs 12/20/22 mg tablet metronidazole 500 mg tablet 500 mg PO Q8H 7 days #21 tabs 12/20/22 Allergies Allergy/AdvReac Type Severity Reaction Status Date / Time sulfite Allergy Severe COUGH Verified 03/24/22 13:12 codeine Allergy Mild ITCHING Verified 03/24/22 13:12 tree nut Allergy Mild Cough Verified 03/24/22 13:12 garlic Allergy Unknown cough Verified 03/24/22 13:12 PARMESAN Allergy Severe COUGH Uncoded 03/24/22 13:12 Review of Systems Review of Systems ROS Unobtainable: All systems reviewed & are unremarkable except as noted in HPI and below Patient History Medical History Allergic rhinitis Chicken pox (~1950) Chronic prescription opiate use Easy bruising Fractures (2011) Hayfever (1994) Measles (~1950) Mumps (~1950) Osteoarthritis (2007) Osteopenia after menopause Osteoporosis (2014) Physical exam Polymyalgia rheumatica (2007) Rheumatic fever (~1950) Rheumatoid arthritis (~2007) Tinnitus (1988) Tubulovillous adenoma of colon (~11/2015) Surgical History Anesthesia History of bilateral tubal ligation (~1979) History of cosmetic surgery (2011) History of oral surgery (1992) History of oral surgery (1999) Status post cholecystectomy (1965) Family History Child Age: 59 Diabetes mellitus Father Stroke Congestive heart failure Sister Asperger's disorder Bipolar disorder Colon cancer Drug abuse Grandfather Heart attack Grandmother No problems noted. Mother Alcoholism Grandfather No problems noted. Grandmother Gallbladder problem Social History household members: spouse Smoking Status: Former smoker Tobacco: How many years used: 28 alcohol intake: former (Stopped 2009 due to sulfites in food ) substance use type: does not use Smoking Status: Former smoker Substance Use Type: does not use Exam Initial Vital Signs Initial Vital Signs: Vital Signs Temperature 98.5 F 12/19/22 20:36 Pulse Rate 108 H 12/19/22 20:36 Respiratory Rate 18 12/19/22 20:36 Blood Pressure 133/60 12/19/22 20:36 Pulse Oximetry 97 12/19/22 20:36 Oxygen Delivery Method Room Air 12/19/22 20:36 GENERAL: Alert pleasant 77-year-old female in [id number] distress HEENT: Head atraumatic,EOMI, pupils reactive, face symmetric, moist mucous membranes CARDIOVASCULAR: Regular rate and rhythm without murmurs, rubs or gallops. RESPIRATORY: Breath sounds equal bilaterally, no wheezes rales or rhonchi. ABDOMEN: Soft, tender right lower quadrant pain, no guarding no rebound, no right upper quadrant, mild suprapubic pain : No CVA tenderness EXTREMITIES: Normal range of motion, no clubbing or edema. Neurovascularly intact NEUROLOGICAL: Alert and oriented x4. SKIN: Warm, dry, no laceration, no petechiae, no rashes or lesions. Course Orders Ordered: Discontinued Medications Hydrocodone Bitart/Acetaminophen (Hydrocodone/Acet 5/325 Prepack) 1 bottle MISC SEEINSTR ONE Stop: 12/20/22 00:32 Last Admin: 12/20/22 00:42 Dose: 1 bottle Documented By: GC Ciprofloxacin (Ciprofloxacin 250 Mg Tablet) 500 mg PO NOW ONE Stop: 12/20/22 00:32 Last Admin: 12/20/22 00:42 Dose: 500 mg Documented By: GC Ketorolac Tromethamine (Ketorolac 30 Mg/Ml Vial) 15 mg IV NOW ONE Stop: 12/20/22 00:18 Last Admin: 12/20/22 00:25 Dose: 15 mg Documented By: SHERRON Metronidazole (Metronidazole 500 Mg Tablet) 500 mg PO NOW ONE Stop: 12/20/22 00:32 Last Admin: 12/20/22 00:43 Dose: 500 mg Documented By: HAN Morphine Sulfate (Morphine 2 Mg/Ml Inj) 2 mg IV NOW ONE Stop: 12/19/22 21:14 Last Admin: 12/19/22 21:30 Dose: 2 mg Documented By: PINKY Ondansetron HCl (Ondansetron 4 Mg Odt) 4 mg PO NOW PRN PRN Reason: Nausea And Vomiting Ondansetron HCl (Ondansetron 4 Mg/2 Ml Inj) 4 mg IV NOW PRN PRN Reason: Nausea And Vomiting Vital Signs Vital signs: Vital Signs - 8 hr 12/20/22 00:36 Pulse Rate 95 H Respiratory Rate 16 Blood Pressure 142/65 H Pulse Oximetry 99 Oxygen Delivery Method Room Air MDM - Abdominal Pain Lab Data 12/19/22 21:10 12/19/22 21:10 Labs: Lab Results 12/19/22 12/19/22 12/19/22 Range/Units 20:40 21:10 21:10 WBC 10.9 (4.5-11.0) X10^3/uL RBC 3.37 L (4.0-5.2) X10^6/uL Hgb 10.7 L (12.0-16.0) g/dL Hct 31.2 L (36-46) % MCV 92.6 (80-100) fL MCH 31.9 (26-34) PG MCHC 34.5 (30-36) % RDW 13.3 (11.6-14.8) % Plt Count 204 (150-400) X10^3/uL Neut % (Auto) 90.0 H (50-75) % Lymph % (Auto) 5.1 L (25-40) % [place] % (Auto) 4.7 (3-14) % Eos % (Auto) 0.0 L (2-4) % Baso % (Auto) 0.2 (0-2) % Neut # (Auto) 9800 H (2150-4110) /uL Lymph # (Auto) 600 L (0500-3796) /uL [place] # (Auto) 500 (0-900) /uL Eos # (Auto) 0 (0-450) /uL Baso # (Auto) 0 (0-100) /uL Sodium 135 L (137-145) mmol/L Potassium 3.9 (3.4-5.1) mmol/L Chloride 99 (98-107) mmol/L Carbon Dioxide 28 (22-32) mmol/L BUN 15 (7-17) mg/dL Creatinine 0.70 (0.52-1.04) mg/dL Estimated GFR > 60 (>60) mL/min BUN/Creatinine Ratio 21.4 (6-22) Glucose 143 H (80-110) mg/dL Calcium 8.8 (8.4-10.2) mg/dL Total Bilirubin 0.7 (0.2-1.3) mg/dL AST 28 (14-36) IU/L ALT 17 (<35) IU/L Alkaline Phosphatase 58 (38-126) U/L Total Protein 8.6 H (6.3-8.2) g/dL Albumin 4.1 (3.5-5.0) g/dL Globulin 4.5 H (1.7-4.1) g/dL Albumin/Globulin Ratio 0.9 L (1.0-2.8) Lipase 39 (23-300) U/L Urine RBC 0-1/hpf (0-5/HPF) Urine WBC 5-10/hpf H (0-5/HPF) Ur Squamous Epith Cells 1-5 /hpf (0-5/HPF) Ur Transition Epith Cell 1-5/hpf (0-5/HPF) Ur Renal Epithelial Cell 0-1/hpf (0-1/HPF) Urine Bacteria Occasional (0-1) (None) Hyaline Casts 5-10/lpf (None) Ur Culture Indicated? Specimen cultured Point of care testing: Urine Dip Bedside Urine Glucose Negative Bedside Urine Bilirubin - Negative Bedside Urine Ketone +/- 5 Urine Specific [place] 1.015 Bedside Urine Occult Blood - Negative Bedside Urine pH 6 Bedside Urine Protein +/- 15 Bedside Urine Urobilinogen - Negative Bedside Urine Nitrite - Negative Bedside Urine Leukocytes - Negative Esterase Imaging Data CT scan - abdomen/pelvis: Radiologist's Impression: PROCEDURE:? CT ABDOMEN PELVIS W CON ? INDICATIONS:? Right lower quadrant pain ? TECHNIQUE:? After the administration of intravenous contrast, axial sections acquired from the lung bases to the pubic symphysis.? Coronal and sagittal reformats were performed.? For radiation dose reduction, the following was used:? automated exposure control, adjustment of mA and/or kV according to patient size.? ? COMPARISON:? None. ? FINDINGS: ? Lower thorax: The lung bases are clear.? Heart size normal.? No hiatal hernia. ? Liver:? Intrahepatic biliary ductal dilatation present.? There is a left hepatic cyst measuring 1.6 cm. ? Biliary system:? Cholecystectomy.? Distal CBD 1.1 cm proximal CBD 1.4 cm ? Pancreas:? Unremarkable without mass or inflammation evident. ? Spleen:? Normal in size and density. ? Adrenals:? Normal morphology and density. ? Reproductive system:? Unremarkable as visualized. ? Urinary system:? Normal renal size and attenuation.? Small subcentimeter bilateral renal hypodensities, likely cysts.? No renal calculi, hydronephrosis, or solid mass present.? Urinary bladder unremarkable. ? Gastrointestinal system:? There is right colon wall thickening without pericolonic inflammatory change.? No evidence of obstruction.? No pneumatosis. ? Appendix:? Although the appendix is not visualized, no pericecal inflammation present to suggest appendicitis ? Peritoneal spaces:? No mesenteric or retroperitoneal adenopathy.? No free air.? No free fluid.? ? Vasculature:? Aortic atherosclerotic vascular calcification noted without evidence of aneurysm. ? Abdominal wall:? Abdominal wall intact without evidence of ventral or inguinal hernias. ? Musculoskeletal:? Normal bone mineralization.? No acute fractures.? Left hip arthroplasty limits assessment of several images in the pelvis.? Chronic appearing T11 wedge-shaped compression fracture with 10% height loss ? IMPRESSION: ? 1. Although the appendix is not visualized, no pericecal inflammation present to suggest appendicitis. ? 2. Mild right colon wall thickening without pericolonic inflammatory change.? Differential would include mild early colitis versus underdistention of the colon. ? 3.? Intra and extrahepatic bile duct dilatation status post cholecystectomy.? Consider follow-up MRCP to evaluate for distal CBD stone. ? Approved by: Parish Armstrong M.D. on 12/19/2022 at 22:25? ECG Data Interpretation: Sinus rhythm rate 90 KS interval 202 QRS QTC changes no priors to compare nonspecific T-wave MDM Narrative Medical decision making narrative: Patient 77-year-old female with sudden onset right lower quadrant pain. CT does not show sign of appendicitis, but does show right colon is mildly thick. She has no leukocytosis but a mild left shift, electrolytes are within normal limits no evidence of EVGENY. She is afebrile here in the ED. at this time she is in a lot of pain. I think reasonable to start her on antibiotics for an early colitis and pain control. Pain really does not move it is not out of proportion, low concern for ischemia. Discharge Plan Departure Patient Disposition: Home Clinical Impression: Colitis Instructions: DI for Colitis Activity Restrictions/Additional Instructions: *You have been diagnosed with colitis *What to do: At this time you have a little bit of inflammation in the right side of your colon no evidence of appendicitis. Will start you on antibiotics and pain control. You may find that a low-fiber diet is needed. Please stay hydrated with Gatorade or Gatorade like product. *Continue to take medications as directed-->sent to [facility] in [place] Cipro 500 mg twice a day for 7 days Flagyl 500 mg 3 times a day for 7 days [place] 1 tablet every 6 hours if needed for severe pain *Follow up with your primary care provider in 2-3 days or call [phone] *Return to ER if you should have increasing pain fever or any new, worsening or concerning symptoms CONTROLLED SUBSTANCE DISCHARGE (Narcotoic/benzodiazepine/Flexeril/Phenergan) 1. You have been prescribed narcotic medications, it does have acetaminophen/Tylenol/paracetamol in it, DO NOT TAKE MORE THAN 4,00mg in 24 hours of Tylenol. TRAMADOL DOES NOT CONTAIN TYLENOL 2. Please understand that we cannot provide further refills of narcotics, benzodiazepines or controlled substances through the ED and her pain management will need to be through your provider. 3. While on these medications you cannot drive or operate heavy machinery. 4. You cannot sign legal documents or perform any duties such as this. 5. As long as you're taking opiate pain medications he should also be taking a stool softener such as Colace, Dulcolax, MiraLAX or prune juice, to help avoid constipation. Prescriptions: New hydrocodone-acetaminophen 5-325 mg tablet 1 tab PO Q6H PRN (Reason: pain) Qty: 10 0RF metronidazole 500 mg tablet 500 mg PO Q8H 7 Days Qty: 21 0RF ciprofloxacin HCl [Cipro] 500 mg tablet 500 mg PO BID Qty: 14 0RF No Action fluticasone propionate 50 mcg/actuation spray,suspension 1 spray Intranasal BID Qty: 16 3RF hydrocodone-acetaminophen 7.5-325 mg tablet 1 tab PO BID PRN (Reason: breakthrough pain, severe) Qty: 120 0RF prednisone 1 mg tablet 1 mg PO DAILY multivitamin Tablet 1 tab PO DAILY flaxseed oil 1,000 mg capsule 1,000 mg PO DAILY Rx Instructions: administer with a meal mecobalamin (vitamin B12) PO cholecalciferol (vitamin D3) 1,000 unit capsule 1,000 unit PO DAILY Referrals: Stacie Harris DO [Primary Care Provider] - Stand Alone Forms: Patient Portal/API
[2022-12-20] MEDS: KETOROLAC 30 MG/ML VIAL 15 MG IV (00:25)
[2022-12-20 00:36] VITALS: BP 142/65; PULSE 95; RESP 16; O2SAT 99
[2022-12-20] MEDS: HYDROCODONE/ACET 5/325 PREPACK 1 BOTTLE MISC (00:42)
[2022-12-20] MEDS: CIPROFLOXACIN 250 MG TABLET 500 MG PO (00:42)
[2022-12-20] MEDS: metroNIDAZOLE 500 MG TABLET PO (00:43)
== END 2022-12-20 00:52 | disposition home or self-care (01) ==
PROVIDERS: Emergency Provider Emergency Medicine; PCP Family Medicine
DX: K52.9 Noninfective gastroenteritis and colitis, unspecified (principal); R10.31 Right lower quadrant pain
CPT/HCPCS: 36415; 74177; 80053; 81003; 81015; 83690; 85025; 87086; 93005; 96374; 96375; 99284; J1885; J2270; Q9967

== ENCOUNTER → 2024-03-15 12:17 | Outpatient (CLI) | payer MEDICARE, SELFPAY ==
--- NOTE | 2024-03-15 12:18 | DI.MG.S_ITS ---
BILATERAL DIGITAL SCREENING MAMMOGRAM 3D/2D WITH CAD: 03/15/2024 CLINICAL: Routine screening. Comparison is made to exams dated: 09/22/2021 mammogram, 12/03/2022 mammogram, and 09/19/2020 mammogram - [facility]. There are scattered areas of fibroglandular density (category b / 25%-50% glandular tissue). Current study was also evaluated with a Computer Aided Detection (CAD) system. No significant masses, calcifications, or other findings are seen in either breast. There has been no significant interval change. IMPRESSION: NEGATIVE There is no mammographic evidence of malignancy. A 1 year screening mammogram is recommended. Based on the Tyrer Cuzick model (a risk assessment model) the patient's lifetime risk is 1.6% and her 10 year risk is 0.0%. According to the ACR, ACS, and NCCN guidelines, an annual breast MRI exam along with mammogram is recommended if the patient's lifetime risk is 20% or greater. This exam was interpreted at Station ID: [id number]. NOTE: For mammograms, a report in lay terms will be sent to the patient. Approximately 15% of breast malignancies will not be visualized mammographically. In the management of a palpable breast mass, a negative mammogram must not discourage biopsy of a clinically suspicious lesion. Electronically Signed By: Zainab nathan/melissa:03/15/2024 18:31:27 letter sent: Normal Exam ACR BI-RADS Category 1: Negative [id number]
== END ==
PROVIDERS: PCP Nurse Practitioner Family; Referring Provider Nurse Practitioner Family; Visit Provider Nurse Practitioner Family
DX: Z12.31 Encounter for screening mammogram for malignant neoplasm of breast (principal)
CPT/HCPCS: 77063; 77067